=== PATIENT | male | born 1955 | race Caucasian/White ===

== ENCOUNTER 2022-10-31 10:49 | Outpatient (CLI) | payer BC ==
[2022-10-31 11:57] LABS: ALT (SGPT) 23 U/L (8-55); AST (SGOT) 13 U/L (5-34); Albumin 4.1 g/dL (3.4-4.8); Alkaline Phosphatase 60 U/L (40-110); Anion Gap 15 mmol/L (10-20); BUN (Urea Nitrogen) 21 mg/dL (8.4-25.7); Bilirubin, Total 0.4 mg/dL (0.2-1.2); Calc. Creatinine Clearance 0 mL/min (70-130); Carbon Dioxide 21 mmol/L (23-31); Chloride 108 mmol/L (98-107); Estimated GFR 62; Globulin 2.6 g/dL (2.4-3.5); Glucose 120 mg/dL (80-115); Potassium 4.5 mmol/L (3.5-5.1); Protein, Total 6.7 g/dL (5.8-8.1)
[2022-10-31 12:12] LABS: Sodium 139 mmol/L (136-145)
[2022-10-31] MEDS ORDERED: Iopamidol 370 76% 100 ML VIAL ONE (18:41)
== END 2022-10-31 10:50 | disposition home or self-care (01) ==
LOC: BURCT 10:49
PROVIDERS: ATTEND Specialist
DX: N28.89 Other specified disorders of kidney and ureter (principal); K57.30 Diverticulosis of large intestine without perforation or abscess without bleeding; K76.89 Other specified diseases of liver; N32.89 Other specified disorders of bladder; Z90.5 Acquired absence of kidney
CPT/HCPCS: 36415; 71046; 74178; 80053; Q9967

== ENCOUNTER 2025-03-02 07:21 | Outpatient (CLI) | payer BC, MEDICARE ==
[2025-03-02] MEDS ORDERED: Iopamidol 370 76% 100 ML VIAL ONE (13:01)
== END 2025-03-02 07:22 | disposition home or self-care (01) ==
LOC: BURCT 07:21
PROVIDERS: ATTEND Specialist
DX: C64.9 Malignant neoplasm of unspecified kidney, except renal pelvis (principal); K57.30 Diverticulosis of large intestine without perforation or abscess without bleeding; Z90.5 Acquired absence of kidney
CPT/HCPCS: 71046; 74178; Q9967